=== PATIENT | female | born 1980 | race Caucasian/White ===

== ENCOUNTER 2025-02-13 19:50 | Emergency (ER) | payer BC ==
[~2025-02-13] VITALS: Ht 172.7 cm; Wt 63.6 kg
[2025-02-13] MEDS ORDERED: LEVO88TA3 PO (20:07)
[2025-02-13] MEDS ORDERED: TOLT2TAB12 PO (20:07)
[2025-02-14 01:52] VITALS: BP 120/59; TEMP 97; O2SAT 100
== END 2025-02-14 01:55 | disposition home or self-care (01) ==
LOC: M ED 19:50
DX: S93.401A Sprain of unspecified ligament of right ankle, initial encounter (principal); Y92.007 Garden or yard of unspecified non-institutional (private) residence as the place of occurrence of the external cause; Y93.9 Activity, unspecified; Y99.9 Unspecified external cause status; W18.42XA Slipping, tripping and stumbling without falling due to stepping into hole or opening, initial encounter; Z88.2 Allergy status to sulfonamides; Z79.899 Other long term (current) drug therapy